=== PATIENT | male | born 1950 | race Caucasian/White ===

== ENCOUNTER 2019-10-26 22:46 | Emergency (ER) | payer BC, MEDICARE ==
[2019-10-26] MEDS ORDERED: EPINEPHRINE 1 MG/ML 1 ML VIAL IM ONE (22:58)
[2019-10-26] MEDS ORDERED: Famotidine IV* 10 MG/ML 2 ML (20 mg) IV SLOW PU ONE (22:58)
[2019-10-26] MEDS ORDERED: Famotidine IV* 10 MG/ML 2 ML (20 mg) ONE ×3 (22:59→23:06)
[2019-10-26] MEDS ORDERED: diPHENhydraMINE IV* 50 MG/ML 1 ml VIAL (BENADRYL) SLOW PUSH ONE (22:59)
--- NOTE | 2019-10-26 23:05 | ED ---
Complex/Multi-Sys Presentation - HPI Summary HPI Summary: Patient is a 69 y/o M presenting to [facility] with complaints of diffuse rash and sore throat. He states that he was started on Prilosec 10/22/19. Yesterday, 10/25/19 , patient had onset of a diffuse rash. He took Claratin D and went to sleep. Today, 10/26/19, the patient states that he felt fine. However, this evening, patient had onset of diffuse rash once more. He notes the rash is pruritic, painful, and has been spreading since onset. Sore throat bilaterally is also noted. No CP, SOB or abdominal pain reported. PMHx of cardiac and respiratory disease denied. He is a non-smoker. Patient notes that he had an allergic reaction ten years ago, cause was not determined. Home medications and allergies are reviewed. - History Of Current Complaint Chief Complaint: EDAllergicReaction Hx Obtained From: Patient Onset/Duration: Lasting Hours, Still Present, Worse Since Timing: Constant, Hours Location: Pain At: - throat Associated Signs And Symptoms: Positive: Other - positive - sore throat, rash. Negative: SOB, Chest Pain, Abdominal Pain - Allergies/Home Medications Allergies/Adverse Reactions: Allergies Allergy/AdvReac Type Severity Reaction Status Date / Time MS Codeine [Codeine] Allergy Intermediate Unknown Verified 10/26/19 22:50 Reaction Details Home Medications: Home Medications Omeprazole 20 mg PO DAILY 10/26/19 [History Confirmed 10/26/19] PMH/Surg Hx/FS Hx/Imm Hx Endocrine/Hematology History: Denies: Hx Diabetes, Hx Systemic Lupus Erythematosus Cardiovascular History: Denies: Hx Congestive Heart Failure, Hx Hypertension History: Denies: Hx Dialysis, Hx Renal Disease Musculoskeletal History: Denies: Hx Rheumatoid Arthritis - Cancer History Hx Chemotherapy: No - Surgical History Surgery Procedure, Year, and Place: Bilateral Inguinal Hernia Repairs; Rt Knee arthoscopic procedure repair; Infectious Disease History: No Infectious Disease History: Denies: Traveled Outside the [place] in Last 30 Days - Family History Known Family History: Positive: Other - negative - prostate CA - Social History Alcohol Use: Occasionally Substance Use Type: Reports: None Smoking Status (MU): Never Smoked Tobacco Review of Systems Positive: Sore Throat Negative: Chest Pain Negative: Shortness Of Breath Negative: Abdominal Pain Positive: Rash All Other Systems Reviewed And Are Negative: Yes Physical Exam - Summary Physical Exam Summary: Appearance: Well-appearing, Well-nourished, appears apprehensive but in no acute distress. Skin: Warm, dry; there is extensive and confluent urticaria lesions on BUE, thighs, and much of torso. Eyes: sclera anicteric, no conjunctival pallor ENT: mucous membranes moist, pharynx appears normal Neck: Supple, nontender Respiratory: Clear to auscultation, no signs of respiratory distress, no stridor. Cardiovascular: Normal S1, S2. No murmurs. Normal distal pulses in tibial and radial bilaterally. Abdomen: Soft, nontender, normal active bowel sounds present Musculoskeletal: Normal, Strength/ROM Intact Triage Information Reviewed: Yes Vital Signs On Initial Exam: Initial Vitals Temp Pulse Resp BP Pulse Ox 98.1 F 104 18 168/102 99 10/26/19 22:47 10/26/19 22:47 10/26/19 22:47 10/26/19 22:47 10/26/19 22:47 Vital Signs Reviewed: Yes Procedures - Sedation Patient Received Moderate/Deep Sedation with Procedure: No Diagnostics - Vital Signs Vital Signs Temp Pulse Resp BP Pulse Ox 10/26/19 22:47 98.1 F 104 18 168/102 99 - Laboratory Lab Statement: Any lab studies that have been ordered have been reviewed, and results considered in the medical decision making process. Re-Evaluation - Re-Evaluation First Eval Re-Evaluation Time: 00:18 Change: Improved Comment: Patient's symptoms are improved after medications. He is discharged to home. Complex Multi-Symp Course/Dx Course Of Treatment: Patient is a 69 y/o M presenting to [facility] with complaints of diffuse rash and sore throat. He states that he was started on Prilosec . Yesterday, 10/25/19, patient had onset of a diffuse rash. He took Claratin D and went to sleep. Today, 10/26/19, the patient states that he felt fine. However , this evening, patient had onset of diffuse rash once more. He notes the rash is pruritic, painful, and has been spreading since onset. Sore throat bilaterally is also noted. No CP, SOB or abdominal pain reported. PMHx of cardiac and respiratory disease denied. He is a non-smoker. Patient notes that he had an allergic reaction ten years ago, cause was not determined. On physical exam, patient is apprehensive but in no acute distress. Respiratory: Clear to auscultation, no signs of respiratory distress, no stridor. There is extensive and confluent urticaria lesions on BUE, thighs, and much of torso. During ED course, patient received 50 mg Benadryl, 0.3 mg Epi IM, and 40 mg Famotidine. Patient's symptoms are improved after medications. He is discharged to home. - Diagnoses Provider Diagnoses: Urticaria Discharge ED - Sign-Out/Discharge Documenting (check all that apply): Patient Departure - discharge - Discharge Plan Condition: Good Disposition: HOME Patient Education Materials: Urticaria (ED) Referrals: No Primary Care Phys,NOPCP [Primary Care Provider] - Additional Instructions: Antihistamines like benadryl and claritin are the mainstay of treating a bout of urticaria, so keep them on hand as it would not be unexpected for the skin to break out again. Sometimes it takes a few days to a week for the reaction to burn out. - Billing Disposition and Condition Condition: GOOD Disposition: Home - Attestation Statements Document Initiated by Yaniv: Yes Documenting Chapinibe: ROSEANN BROWNING Provider For Whom Yaniv is Documenting (Include Credential): FERMIN NYE MD Scribe Attestation: IROSEANN, scribed for FERMIN NYE MD on 10/27/19 at 0254. Scribe Documentation Reviewed: Yes Provider Attestation: The documentation as recorded by the ROSEANN olvera accurately reflects the service I personally performed and the decisions made by me, FERMIN NYE MD Status of Scribe Document: Viewed
[2019-10-26] MEDS ORDERED: diPHENhydraMINE IV* 50 MG/ML 1 ml VIAL (BENADRYL) ONE (23:06)
[2019-10-26] MEDS ORDERED: EPINEPHRINE 1 MG/ML 1 ML VIAL ONE (23:06)
[2019-10-26] MEDS: NS 0.9% 1000 ML** 2,000 ML IV ONE (23:16)
--- OUTSIDE RECORDS SUMMARY | 2019-10-26 23:36 | XMS REPORT | Continuity of Care Document ---
:1950 External Reference #:[id number] Author Name Thierry Field DO Address [address] [place] [id number] Care Team Providers Name Role Phone Kristian Mcdaniel MD Care Team Information Door And Arrival Attendant [phone] Problems Description No Information Available Social History Type Date Description Comments Sex Unknown Tobacco Use Start: Unknown Patient has never smoked Smoking Status Reviewed: 10/21/19 Patient has never smoked Allergies, Adverse Reactions, Alerts Active Allergies Reaction Severity Comments Date Codeine fever 09/23/2019 Medications Description No Active Medications Immunizations Description No Information Available Vital Signs Date Vital Result Comment 10/21/2019 2:55pm Height 66 inches 5'6" Weight 145.00 lb BP Systolic 138 mmHg BP Diastolic 87 mmHg Heart Rate 79 /min BMI (Body Mass Index) 23.4 kg/m2 11/19/2015 3:23pm Height 66 inches 5'6" Weight 145.00 lb BMI (Body Mass Index) 23.4 kg/m2 Results Test Acquired Date Facility Test Result H/L Range Note Xray 09/29/2019 [facility] Rad[facility] CT, Abd & <pending> Pelvis W/ Contrast Comprehensive 09/15/2019 N2N/CCD Import Sodium 142 mEq/L 134-149 Metabolic Prof Potassium 4.1 mEq/L 3.6-5.5 Chloride 108 mEq/L 94-112 Carbon Dioxide 23 mEq/L 21-32 Glucose 94 mg/dL 70-105 BUN 18 mg/dL 6-26 Creatinine 1.1 mg/dL 0.6-1.4 BUN/Creat Ratio 16.4 CALC 8.0-36.0 Calcium 9.5 mg/dL 8.6-10.2 Total Protein 7.6 g/dL 6.4-8.3 Albumin 4.9 g/dL 3.8-5.5 Globulin 2.7 g/dL 2.0-4.8 A/G Ratio 1.8 CALC 0.6-2.3 Alk. Phosphatase 68 U/L 22-95 Alt (SGPT) 17 U/L 7-35 Ast (Sgot) 17 U/L 5-34 Total Bilirubin 0.5 mg/dL 0.2-1.3 GFR Non- >60 ml/min/1.73m^ GFR >60 ml/min/1.73m^ Lab Results 09/15/2019 N2N/CCD Import WBC 9.0 10^3/uL 4.0-10.0 RBC 5.00 10^6/uL 3.93-6.00 HGB 14.6 g/dL 12.0-17.0 HCT 44 % 35-50 MCV 88.8 fL 80.0-95.0 MCH 29.2 pg 25.6-32.2 MCHC 32.9 g/dL 32.2-36.0 RDW-CV 12.8 % 11.6-14.4 PLT 168 10^3/uL 163-400 MPV 10.0 fL 9.4-12.4 Whit# 2.70 10^3/uL 1.56-6.13 Lymph# 2.78 10^3/uL 1.18-3.74 Quay# 0.70 10^3/uL 0.24-0.82 Eos # 2.7 10^3/uL High 0.0-0.5 Baso # 0.04 10^3/uL 0.01-0.08 Whit% 30.2 % Low 34.0-70.0 Lymph % 31.0 % 20.0-52.0 Quay% 7.8 % 5.0-12.0 Eos% 30.5 % High 0.7-7.0 Baso% 0.4 % 0.1-1.2 Amylase, Serum 170 U/L High 20-105 Lab Results 09/15/2019 N2N/CCD Import Amylase, Serum 170 U/L High 20-105 Laboratory test 09/15/2019 [facility] Lipase Ser/Plas <pending> finding (!) C-Reative Protein <pending> Procedures Description No Information Available Medical Devices Description No Information Available Encounters Description No Information Available Assessments Date Code Description Provider 10/21/2019 K21.9 Gastro-esophageal reflux disease without Thierry Field, DO esophagitis 10/21/2019 R93.3 Abnormal findings on diagnostic imaging of other Thierry Field, DO parts of digestive tract 10/21/2019 R10.13 Epigastric pain Thierry Field, 10/21/2019 Z80.0 Family history of malignant neoplasm of digestive Thierry Field, DO organs Plan of Treatment No Information Available Functional Status Description No Information Available Mental Status Description No Information Available Referrals Description No Information Available
[2019-10-27 00:38] VITALS: BP 138/83
== END 2019-10-27 00:39 | disposition home or self-care (01) ==
LOC: ED 22:46
DX: L50.9 Urticaria, unspecified (principal); J02.9 Acute pharyngitis, unspecified; R21 Rash and other nonspecific skin eruption
CPT/HCPCS: 96360; 99283; J1200; J7512